=== PATIENT | male | born 1980 | race Caucasian/White ===

== ENCOUNTER 2020-11-26 18:50 | Emergency (ER) | payer OTHER ==
[2020-11-26 19:20] VITALS: BMI 28.0
[2020-11-26] MEDS ORDERED: SODIUM CHLORIDE 1,000 ML IV STA (19:52)
[2020-11-26] MEDS ORDERED: morphine SULFATE 4 MG/ML VIAL IVPUSH ONE (19:52)
[2020-11-26] MEDS ORDERED: morphine SULFATE 4 MG/ML VIAL ONE (22:20)
[2020-11-26 22:39] LABS: BASO % 0.1 % (0-2.0); HEMATOCRIT 42.2 % (35.4-49); HEMOGLOBIN 14.4 GM/dL (11.7-16.9); LYMPH % 8.7 % (8-40); MCH 29.2 pg (25.7-33.7); MCHC 34.1 g/dl (32.0-35.9); MEAN CELL VOLUME 85.7 fl (80-96); MEAN PLT VOLUME 8.4 fl (7.5-11.1); MONO % 7.7 % (3.8-10.2); NEUT % 83.5 % (42.8-82.8); PLATELET COUNT 161 K/MM3 (134-434); RBC 4.92 M/mm3 (4.00-5.60); RDW 13.3 % (11.9-15.9)
[2020-11-26 23:08] LABS: CALCIUM 8.9 mg/dL (8.5-10.1)
[2020-11-26 23:09] LABS: ALBUMIN 3.6 g/dl (3.4-5.0); BLOOD UREA NITROGEN 14.1 mg/dL (7-18)
[2020-11-26 23:13] LABS: ANISOCYTOSIS 0; MACROCYTOSIS 0; PLATELET ESTIMATE NORMAL
[2020-11-26 23:14] LABS: BILIRUBIN,TOTAL 2.8 mg/dL (0.2-1); TOT PROT 7.6 g/dl (6.4-8.2)
[2020-11-27] MEDS ORDERED: SODIUM CHLORIDE 1,000 ML IV STA (00:03)
[2020-11-27 01:35] LABS: EPI CELLS 4 /uL (0-25.1); HYALINE CASTS 9 /uL (0-3.1); URINE APPEARANCE CLEAR; URINE BACTERIA 216 /uL (0-1359); URINE BILIRUBIN NEGATIVE (NEGATIVE); URINE COLOR DK YELLOW; URINE GLUCOSE (UA) NEGATIVE (NEGATIVE); URINE KETONE 2+ (NEGATIVE); URINE LEUK ESTERASE 1+ (NEGATIVE); URINE NITRITE NEGATIVE (NEGATIVE); URINE PROTEIN TRACE (NEGATIVE); URINE RBC 109 /uL (0-23.9); URINE WBC 428 /uL (0-25.8)
[2020-11-27 02:05] VITALS: BP 103/59; PULSE 96; TEMP 99.8
[2020-11-27] MEDS ORDERED: DOXYCYCLINE HYCLATE 100 MG CAPSULE PO ONE ×2 (02:52→02:56)
[2020-11-27] MEDS ORDERED: cefTRIAXone SODIUM 1 GM VIAL ONE (02:56)
== END 2020-11-27 04:09 | disposition home or self-care (01) ==
LOC: JER 18:50
PROC: 3E033GC Introduction of Other Therapeutic Substance into Peripheral Vein, Percutaneous Approach (ICD-10-PCS; principal; 2020-11-26)
PROC: 3E0337Z Introduction of Electrolytic and Water Balance Substance into Peripheral Vein, Percutaneous Approach (ICD-10-PCS; principal; 2020-11-26)
PROC: 3E023GC Introduction of Other Therapeutic Substance into Muscle, Percutaneous Approach (ICD-10-PCS; principal; 2020-11-26)
DX: R31.9 Hematuria, unspecified (principal); D72.829 Elevated white blood cell count, unspecified
CPT/HCPCS: 36415; 74177-TC; 80053; 81003; 83605; 85025; 86850; 86900; 86901; 87040; 87086; 87186; 99285-25; Q9967